=== PATIENT | male | born 1970 | race Caucasian/White ===

== ENCOUNTER 2022-12-08 14:39 | Emergency (ER) | payer OTHER ==
[~2022-12-08] VITALS: Ht 175.3 cm; Wt 78.0 kg
== END 2022-12-08 16:56 | disposition home or self-care (01) ==
LOC: ER 14:39
DX: H60.92 Unspecified otitis externa, left ear (principal); Z88.6 Allergy status to analgesic agent; Z88.8 Allergy status to other drugs, medicaments and biological substances